=== PATIENT | female | born 1980 | race Caucasian/White ===

== ENCOUNTER 2016-07-12 19:49 | Emergency (ER) | payer MEDICAID ==
[~2016-07-12 19:49] MED LIST: ALORA1 EAC2 TD; AMOXICILLIN875 MG PO; ANTIVERT25 M1 PO; ASPIRIN81 MG PO; BENZONATATE200 M1 PO; CIPRO500 M1 PO; CIPRO500 M2 PO; DOXYCYCLINE HY100 M3 PO; GUIATUSS AC SY120 M1 PO; INDERAL LA60 MG PO; IRON SUPPLEMEN325 MG PO; LEVOTHYROXINE50 MC3 PO; NORTREL1 T PO; PHENERGAN25 MG PO; PROVENTIL HFA6.7 G1 IH; PROZAC10 M PO; VITAMIN D350000 UNI1 PO; ZITHROMAX250 M1 PO; ZOFRAN ODT4 MG/UDTAB PO
[2016-08-12] MEDS ORDERED: VITAMIN D50000 UNI2 PO (23:53)
[2016-08-12] MEDS ORDERED: SYNTHROID150 MC1 PO (23:53)
[2016-10-30] MEDS ORDERED: PAMELOR25 M1 PO (16:56)
== END 2016-07-12 21:13 ==
LOC: EDMED 19:49
DX: S90.121A Contusion of right lesser toe(s) without damage to nail, initial encounter (principal); F32.9 Major depressive disorder, single episode, unspecified; E03.9 Hypothyroidism, unspecified; Z79.890 Hormone replacement therapy; Z79.899 Other long term (current) drug therapy; W22.09XA Striking against other stationary object, initial encounter; Y92.019 Unspecified place in single-family (private) house as the place of occurrence of the external cause